=== PATIENT | male | born 1985 | race Caucasian/White ===

== ENCOUNTER → 2024-10-16 | Outpatient (CLI) | payer OTHER ==
--- NOTE | 2024-10-16 10:53 | XR ---
EXAMINATION TYPE: XR hand complete 3 views LT DATE OF EXAM: 10/16/2024 10:42 AM COMPARISON: None CLINICAL INDICATION: Male, 39 years old with pain after history of S67.197S CRUSHING INJURY OF LEFT L ITTLE FINGER, SE, , FINDINGS: There is focal soft tissue swelling at the distal aspect of the fifth finger. No acute fracture, subl uxation, dislocation is seen. IMPRESSION: Focal soft tissue swelling distal aspect of the fifth finger. No underlying acute osseous abnormality is seen. [facility], , 10/16/2024 10:51 AM
== END | disposition home or self-care (01) ==
LOC: RADXRMAIN 10:22
PROVIDERS: ATTEND Emergency Medicine
DX: S67.19 Crushing injury of other finger(s) (principal); M79.89 Other specified soft tissue disorders

== ENCOUNTER → 2024-12-13 | Outpatient (CLI) | payer BC ==
--- NOTE | 2024-12-13 10:20 | US ---
EXAMINATION TYPE: US thyroid st tissue head/neck DATE OF EXAM: 12/13/2024 COMPARISON: NONE CLINICAL INDICATION: Male, 39 years old with history of E03.9 Hypothyroidism; Patient on thyroid medi cations - patient denies any other signs, symptoms, or relevant history TECHNIQUE: Grayscale and color Doppler imaging of the thyroid gland. FINDINGS: GLAND SIZE: Right Lobe: 5.8 x 2.6 x 2.3 cm Overall Parenchyma: heterogeneous Left Lobe: 4.6 cm wide. Unable to fully measure in the sagittal plane. Overall Parenchyma: heterogeneous Isthmus Thickness: 8 mm NODULES RIGHT: # of nodules measured on right: 0 LEFT: # of nodules measured on left: 2 1. 5.0 X 3.4 x 3.3 cm, lower mid, solid or almost completely solid, heterogeneous hyperechoic TR 3 nodule, which is taller than wide, with lobulated or irregular margins, without echogenic foci. Prior size: No prior 2. 1.2 X 1.2 x 1.2 cm, upper medial, solid or almost completely solid, hypoechoic TR 4 nodule, whi ch is circular, with smooth margins, without echogenic foci. Prior size: No prior ISTHMUS: # of nodules measured in the isthmus: 0 Bilateral neck scanned, no evidence of lymphadenopathy. IMPRESSION: 1. Heterogeneous parenchyma and thyromegaly. Consider goiter. 2. 2 nodules on the left, the dominant nodule being a 5.0 cm TR3 nodule. FNA/biopsy can be performed. 3. The second nodule on the left is 1.2 cm TR4 nodule that can be followed. 2017 ACR TI-RADS LEVEL: TR-RADS 3 - Mildly Suspicious: Follow if > 1.5 cm, FNA if > 2.5 cm 2017 ACR TI-RADS LEVEL: TR-RADS 4 - Moderately Suspicious: Follow if > 1 cm, FNA if > 1.5 cm [facility], Workstation: [id number] [email or web address], 12/13/2024 10:17 AM
== END | disposition home or self-care (01) ==
LOC: RADUSWWP 09:28
PROVIDERS: ATTEND Internal Medicine
DX: E04.1 Nontoxic single thyroid nodule (principal); E03.9 Hypothyroidism, unspecified
CPT/HCPCS: 76536